=== PATIENT | female | born 1990 | race Caucasian/White ===

== ENCOUNTER 2021-10-02 09:43 | Observation (INO) | payer MEDICAID ==
[~2021-10-02] VITALS: Ht 160 cm; Wt 88.5 kg
== END 2021-10-02 11:50 | disposition home or self-care (01) ==
LOC: MLD 09:43
PROVIDERS: ADMIT Obstetrics & Gynecology; ATTEND Obstetrics & Gynecology
DX: Z34.83 Encounter for supervision of other normal pregnancy, third trimester (principal); Z3A.37 37 weeks gestation of pregnancy
CPT/HCPCS: 76819; G0378; Q0092